=== PATIENT | male | born 1940 | race Caucasian/White ===

== ENCOUNTER 2017-05-27 08:24 | Outpatient (CLI) | payer MEDICARE, BC ==
[2017-05-27] MEDS ORDERED: ISOVUE-370 76%-LOCM 1 ML ONE (10:05)
--- NOTE | 2017-05-27 11:45 | CT ---
CONTRAST ENHANCED CTA IMAGES OF THE ABDOMEN AND PELVIS AND BILATERAL LOWER EXTREMITY RUNOFF 05/27/2017 TECHNIQUE: Axial images were obtained after administration of IV contrast, and 2D and 3D reconstructed images we re used to evaluate the abdomen, pelvis, and both lower extremities. FINDINGS: ABDOMEN: Tiny bilateral pleural effusions are seen. Some fibrotic changes are seen in the lung bases. The liver and spleen are unremarkable. The gallbladder is unremarkable. A hiatal hernia is seen. T he stomach is otherwise unremarkable. The small bowel loops and colon are unremarkable. Both kidneys contain cortical cysts. Atherosclerotic calcification of the abdominal aorta is seen. Some atherosclerotic plaque is seen in the origin of the celiac artery, and some plaques are seen samreen ng the origin of the SMA. Bilateral origin renal artery stenosis is seen. Calcified plaque along th e proximal portion of the right renal artery, resulting in approximately 60% to 70% right renal arter y stenosis. More subtle, predominantly noncalcified plaque is seen along the proximal portion of the left renal artery, approximately 20%. The inferior mesenteric artery is patent. RIGHT LOWER EXTREMITY: Atherosclerotic plaque is seen involving the entire course of the right commo n iliac artery with severe stenosis in the distal right common iliac artery. The densely calcified p laque extends into the right external iliac artery. There appears to be an endovascular stent at the junction of the right external and common iliac arteries. Atherosclerotic plaque extends in the right external iliac and common femoral arteries. There is a f emoral/popliteal endovascular graft that has been placed. This is completely thrombosed. Flow is se en in the right femoral profunda, which provides collaterals to the mid and distal right leg. The ri ght superficial femoral artery is also completely thrombosed and occluded and extensively diseased du e to calcified plaques. The right femoral profunda collaterals reconstitute the right common peronea l trunk. The right anterior tibial artery is completely occluded. The right peroneal artery and pos terior tibial artery have minimal flow present, due to the femoral profunda collaterals. LEFT LOWER EXTREMITY: Atherosclerotic plaque is seen in the left common iliac and external iliac art eries. An endovascular stent is seen in the left external iliac artery. The left superficial femora l artery is completely occluded. There is a thrombosed left fem/pop graft. Flow is seen via the fem oral profunda branches, which are patent all the way distally, into the left thigh, and provide flow to the left common peroneal trunk. The left anterior tibial artery is occluded. Again, minimal flow is present in the left peroneal artery and left posterior tibial arteries. IMPRESSION: 1. Some minimal flow is seen in the left peroneal artery and posterior tibial artery. This is via b ilateral femoral profunda collaterals. The left bilateral femoral/popliteal grafts, as well as the s uperficial femoral artery and right and left popliteal arteries are thrombosed. 2. Significant atherosclerotic plaque in the origin of the right renal artery. 3. Coronary artery calcifications. 4. Hiatal hernia. POS: [facility]
== END 2017-05-27 08:25 | disposition home or self-care (01) ==
LOC: CT 08:24
PROVIDERS: ATTEND Thoracic Surgery (Cardiothoracic Vascular Surgery)
DX: I70.212 Atherosclerosis of native arteries of extremities with intermittent claudication, left leg (principal); R09.89 Other specified symptoms and signs involving the circulatory and respiratory systems; I74.3 Embolism and thrombosis of arteries of the lower extremities; I70.1 Atherosclerosis of renal artery; I25.10 Atherosclerotic heart disease of native coronary artery without angina pectoris; K44.9 Diaphragmatic hernia without obstruction or gangrene
CPT/HCPCS: 75635

== ENCOUNTER 2017-10-26 13:42 | Outpatient (CLI) | payer MEDICARE, BC ==
--- NOTE | 2017-10-26 15:13 | RAD ---
CHEST TWO VIEWS: HISTORY: Malignant neoplasm of the lower lobe of the lungs. COMPARISON: 01/26/2017 FINDINGS: Two views of the chest show an enlarged but stable cardiomediastinal silhouette. The patient is stat us post sternotomy. There is a small right pleural effusion. No left pleural effusion is seen. No focal infiltrates or masses are appreciated. IMPRESSION: Small right pleural effusion. POS: [facility]
== END 2017-10-26 13:43 | disposition home or self-care (01) ==
LOC: RAD 13:42
PROVIDERS: ATTEND Thoracic Surgery (Cardiothoracic Vascular Surgery)
DX: C34.31 Malignant neoplasm of lower lobe, right bronchus or lung (principal); J90 Pleural effusion, not elsewhere classified
CPT/HCPCS: 71046

== ENCOUNTER 2019-02-13 23:56 | Observation (INO) | payer MEDICARE, BC ==
[2019-02-14 03:59] VITALS: BMI 31.8
[2019-02-14] MEDS ORDERED: Alfuzosin 10 MG TABDR...ER PO SCH (08:00)
[2019-02-14] MEDS ORDERED: Dutasteride 0.5 MG CAP PO SCH (09:00)
[2019-02-14] MEDS ORDERED: Aspirin 325 MG TAB PO SCH (09:00)
[2019-02-14] MEDS ORDERED: Furosemide 40 MG TAB PO SCH (09:00)
--- NOTE | 2019-02-14 09:13 | ULT ---
CAROTID ULTRASOUND WITH SCHULTZ SCALE AND DOPPLER DUPLEX COLOR FLOW IMAGING SPECTRAL ANALYSIS PERFORMED: DATE: 02/14/19 CLINICAL INDICATION: TIA. CVA. FINDINGS: There is mild scattered atherosclerotic calcification of the carotid arteries. PEAK SYSTOLIC VELOCITY (CM/S): Right CCA 95 Left CCA 92 Right ICA 117 Left ICA 78 There is antegrade flow within the visualized bilateral vertebral arteries. IMPRESSION: 1. No hemodynamically significant stenosis of the right internal carotid artery. 2. No hemodynamically significant stenosis of the left internal carotid artery. POS: [facility]
[2019-02-14] MEDS: Carvedilol 6.25 MG TAB PO SCH ×2 (09:28→14:26)
[2019-02-14] MEDS ORDERED: HumaLOG 300 UNITS/3 ML VIAL SC PRN ×2 (11:51)
[2019-02-14] MEDS ORDERED: Dextrose 5% in Water 1,000 ML IV PRN (11:51)
[2019-02-14] MEDS ORDERED: Dextrose 50% Abboject 50 ML SYRINGE SLOW IVP PRN (11:51)
--- NOTE | 2019-02-14 12:52 | MRI ---
MRI brain noncontrast HISTORY: CVA. FINDINGS: There is no evidence of acute intracranial hemorrhage or infarct. Prominent diffuse cortica l atrophy and chronic ischemic small vessel disease. Old areas of lacunar infarct involves the iva, each basal ganglia, and the left subinsular cortex. Old left occipital lobe infarct. There is n o mass effect or shift of midline structures. IMPRESSION: Evidence of extensive chronic ischemic disease and old small infarcts. No acute intracran ial abnormalities are demonstrated.
[2019-02-14 13:01] LABS: #Eosinphils 0.1 thou/uL (0.0-0.7); #Lymphocytes 1.9 thou/uL (1.20-3.40); #Monocytes 0.9 thou/uL (0.11-0.59); #Neutrophils 6.3 thou/uL (1.40-6.50); %Basophils 0.4 % (0.0-1.0); %Eosinophils 1.3 % (0.0-10.0); %Lymphocytes 20.3 % (21.0-51.0); %Monocytes 9.3 % (0.0-10.0); %Neutrophils 68.7 % (42.0-75.0); Hemoglobin 14.8 g/dL (14.0-18.0); Mean Corpuscular HGB CONC 33.1 g/dL (32.0-36.0); Mean Corpuscular Hemoglobin 30.3 pg (27.0-31.0); Mean Corpuscular Volume 91.6 fL (78.0-98.0); Mean Platelet Volume 9.5 fL (7.4-10.4); Platelet Count 170 thou/uL (130-400); RBC Distribution Width 13.2 % (11.5-14.5); Red Blood Cell (RBC) Count 4.87 mill/uL (4.70-6.10); White Blood Cell (WBC) Count 9.1 thou/uL (4.8-10.8)
[2019-02-14 13:19] LABS: Anion Gap 11 mmol/L (10-20); BUN (Urea Nitrogen) 13 mg/dL (8.4-25.7); Calc. Creatinine Clearance 70 mL/min (70-130); Calcium 9.1 mg/dL (7.8-10.44); Carbon Dioxide 29 mmol/L (23-31); Chloride 104 mmol/L (98-107); Estimated GFR-MDRD 61; Glucose 154 mg/dL (83-110); Potassium 3.6 mmol/L (3.5-5.1); Sodium 140 mmol/L (136-145)
[2019-02-14 16:03] VITALS: BP 139/63; TEMP 98
--- NOTE | 2019-02-14 16:36 | CON ---
DATE OF CONSULTATION: 02/14/2019 CONSULTING PHYSICIAN: Hospitalist Service. IMPRESSION: Transient ischemic attack with transient numbness of the left side of the face and arm and a negative workup. PLAN: 1. Add Plavix. 2. Continue aspirin. 3. Continue statin. 4. Office followup. HISTORY OF PRESENT ILLNESS: Mr. Clements is a 78-year-old man with a known history of hypertension. He came in with complaints of a low-grade headache along with some left facial and arm numbness. Symptoms lasted about an hour. There was some questionable affect on his gait. He was not aware of any speech problems. His workup thus far has been negative including an MRI of the brain and carotid ultrasound. His echocardiogram is pending. His vital signs have been stable, and he is afebrile. He denies past history of stroke or TIA. PAST MEDICAL HISTORY: Hypertension. ALLERGIES: IODINE. SOCIAL HISTORY: No tobacco use. FAMILY HISTORY: Noncontributory. REVIEW OF SYSTEMS: Ten-system review of systems is otherwise negative. PHYSICAL EXAMINATION: GENERAL: He is a well-nourished elderly man, in no distress. VITAL SIGNS: Have been stable. He is afebrile. HEENT: Pupils equal. Conjunctivae clear. Oropharynx clear. Cranium normocephalic and atraumatic. NECK: Supple. EXTREMITIES: No cyanosis or edema. NEUROLOGIC: He is alert and appropriate. His speech is fluent and clear. Cranial nerves are intact. Motor exam showed equal strength. He has no tremor or dysmetria. His gait is steady and narrow based. IMAGING STUDIES: EKG shows a sinus rhythm. SUMMARY: This is an elderly gentleman, who had a TIA despite aspirin and a statin. I would add Plavix 75 mg per day for the next 6 months. I would be happy to follow up with him as an outpatient. Job ID: [id number]
[2019-02-14] MEDS ORDERED: Atorvastatin Calcium 10 MG TAB PO SCH (21:00)
[2019-02-15] MEDS ORDERED: Clopidogrel Bisulfate 75 MG TAB PO SCH (09:00)
== END 2019-02-14 17:53 | disposition home or self-care (01) ==
LOC: ERS 23:56 → 2SE 02-14 03:23
PROVIDERS: ADMIT Internal Medicine; ATTEND Internal Medicine
DX: G45.9 Transient cerebral ischemic attack, unspecified (principal); I25.10 Atherosclerotic heart disease of native coronary artery without angina pectoris; E11.9 Type 2 diabetes mellitus without complications; I50.9 Heart failure, unspecified; F17.220 Nicotine dependence, chewing tobacco, uncomplicated; Z79.82 Long term (current) use of aspirin; Z79.84 Long term (current) use of oral hypoglycemic drugs; Z79.899 Other long term (current) drug therapy; Z91.041 Radiographic dye allergy status; Z95.1 Presence of aortocoronary bypass graft
CPT/HCPCS: 70551; 80048; 82962; 85025; 93306; 93880; 99284; 99406; G0378 ×2; 36416

== ENCOUNTER 2022-10-05 07:30 | Day surgery (SDC) | payer MEDICARE, BC ==
[2022-10-01 15:57] VITALS: BMI 29.0
[2022-10-05] MEDS ORDERED: PROPOFOL 20 ML ONE (09:13)
== END 2022-10-05 11:40 | disposition home or self-care (01) ==
LOC: SDC 07:30
PROVIDERS: ATTEND Internal Medicine Cardiovascular Disease
PROC: 5A2204Z Restoration of Cardiac Rhythm, Single (ICD-10-PCS; principal; 2022-10-05)
DX: I48.19 Other persistent atrial fibrillation (principal); I25.5 Ischemic cardiomyopathy; I11.0 Hypertensive heart disease with heart failure; I50.22 Chronic systolic (congestive) heart failure; I25.10 Atherosclerotic heart disease of native coronary artery without angina pectoris; N52.9 Male erectile dysfunction, unspecified; I73.9 Peripheral vascular disease, unspecified; E78.5 Hyperlipidemia, unspecified; E11.9 Type 2 diabetes mellitus without complications; F17.220 Nicotine dependence, chewing tobacco, uncomplicated; I25.2 Old myocardial infarction; Z86.73 Personal history of transient ischemic attack (TIA), and cerebral infarction without residual deficits; Z79.01 Long term (current) use of anticoagulants; Z79.02 Long term (current) use of antithrombotics/antiplatelets; Z79.84 Long term (current) use of oral hypoglycemic drugs; Z79.899 Other long term (current) drug therapy; Z91.041 Radiographic dye allergy status; Z95.1 Presence of aortocoronary bypass graft
CPT/HCPCS: 92960; 93005; 93010; J2704